=== PATIENT | female | born 1950 | race Caucasian/White ===

== ENCOUNTER 2021-06-11 13:44 | Outpatient (CLI) | payer MEDICARE, SELFPAY ==
[2021-06-11 15:13] LABS: Vitamin D,25 Hydroxy 36.5 ng/mL
[2021-06-11 15:28] LABS: ALB/GLOB Ratio 1.5 RATIO (0.9-2.4); AST(SGOT) 12 U/L (15-37); Alanine Aminotransfer ALT/SGPT 28 U/L (13-56); Albumin, Serum 4.3 g/dL (3.2-5.0); Alkaline Phosphatase 71 U/L (45-117); Anion Gap 5 (5-15); BUN 15 mg/dL (7-18); BUN/Creat Ratio 17.8 RATIO (10-20); Calcium,Total 10.3 mg/dL (8.5-10.1); Chloride 107 mmol/L (98-107); Creatinine, Serum 0.84 mg/dL (0.55-1.02); EST Glomerular Filtration Rate 71 mL/min (>60); Est Glom Filt Rate - Afr Amer 86 mL/min (>60); Globulin 2.9 g/dL (2.2-4.2); Glucose 117 mg/dL (74-106); Potassium 4.3 mmol/L (3.5-5.1); Protein, Total 7.2 g/dL (6.4-8.2); Sodium Level 139 mmol/L (136-145)
[2021-06-12 08:03] LABS: PTHIN 66.5 pg/mL (18.4-80.1)
== END 2021-06-11 23:59 | disposition home or self-care (01) ==
PROVIDERS: PCP Internal Medicine; Referring Provider Internal Medicine Endocrinology, Diabetes & Metabolism; Visit Provider Internal Medicine Endocrinology, Diabetes & Metabolism
DX: E11.65 Type 2 diabetes mellitus with hyperglycemia (principal); Z79.4 Long term (current) use of insulin; I10 Essential (primary) hypertension; E83.52 Hypercalcemia; E55.9 Vitamin D deficiency, unspecified
CPT/HCPCS: 36415; 80053; 82306; 83970

== ENCOUNTER → 2021-12-22 | Outpatient (CLI) | payer MEDICARE, SELFPAY ==
--- NOTE | 2021-12-22 12:11 | US_ITS ---
INDICATION: possible enlarged parathyroid EXAMINATION: Ultrasound US Head/Neck Soft Tissue TECHNIQUE: Sheridan scale and color doppler imaging was performed of the thyroid gland. COMPARISON: None. FINDINGS: RIGHT THYROID LOBE: 3.9 x 1.4 x 1.9 cm. 1. There is heterogeneous echogenicity with multiple small anechoic nodules. 2. There is a prominent 8 x 9 x 8 mm nodule within the midpole of the RIGHT thyroid lobe with internal septation and hypoechoic internal content. Septated colloid cyst is a consideration, and findings are consistent with a TR 2: Not suspicious lesion. No abnormal blood flow. 3. There is a hypoechoic lesion in the deep portion of the RIGHT thyroid lobe measuring 9 x 8 x 9 mm which may represent a prominent parathyroid. LEFT THYROID LOBE: 4.4 x 1.6 x 1.5 cm. 1. There is heterogeneous echogenicity with multiple small anechoic nodules. 2. There are 2 complex nodule/masses within the LEFT thyroid lobe. Smaller measures 1.2 x 1.0 x 1.1 cm, is lobulated in contour. 3. Solid and cystic elements are present. No abnormal blood flow or calcifications however findings consistent with TR 4 lesion. 4. Additional larger complex nodule/mass measures 1.5 x 1.6 x 1.6 cm. Also solid and cystic, focal areas of increased echogenicity are present, no abnormal blood flow, there is a lobulated contour, and findings are consistent with TR4 lesion. 5. And LEFT. Thyroid is not visualized. ISTHMUS: 2.2 mm.. No thyroid nodules are present. US/Head/Neck Soft Tissue IMPRESSION: 1. Bilateral thyroid nodules. There are are small hypoechoic nodules likely representing colloid cysts, and a small to intermediate size complex hypoechoic nodule on the RIGHT likely representing a septated colloid cyst and consistent with a TR2 benign lesion. 2. There is a 9 x 9 x 9 mm hypoechoic area along the deeper posterior surface the RIGHT thyroid lobe, which may represent a parathyroid. No abnormal blood flow. 3. There are 2 mixed solid and cystic nodules on the LEFT with hyperechoic and cystic elements. No abnormal blood flow, however findings are consistent with TR4 lesions. Recommendations: TR4: Moderately Suspicious: FNA if ? 1.5 cm; Follow if ? 1 cm at 1, 2, 3, and 5 y Electronically Signed: César Loja MD at 23:31 EDT ,
== END | disposition home or self-care (01) ==
PROVIDERS: PCP Internal Medicine; Referring Provider Internal Medicine Endocrinology, Diabetes & Metabolism; Visit Provider Internal Medicine Endocrinology, Diabetes & Metabolism
DX: E21.0 Primary hyperparathyroidism (principal)
CPT/HCPCS: 76536

== ENCOUNTER → 2021-12-31 | Outpatient (CLI) | payer MEDICARE, SELFPAY ==
[2021-12-31 10:29] LABS: Erythrocyte Sedimentation Rate 1 mm/hr (0-30)
[2021-12-31 10:31] LABS: Absolute Lymphocyte Count 2.04 X10^3/uL (0.83-4.51); Absolute Neutrophil Count 6.2 X10^3/uL (2.0-7.7); Basophil# 0.07 X10^3/uL; Basophil% 0.8 % (0-1); Eosinophil# 0.18 X10^3/uL; Hematocrit 44.6 % (37-47); Hemoglobin 14.5 g/dL (12.0-15.0); Lymphocyte # 2.04 X10^3/ul (0.83-4.51); Lymphocyte % 22.5 % (19-41); Mean Corp Hgb Conc 32.5 g/dL (32-36); Mean Corpuscular Hgb 28.1 pg (27.0-32.0); Mean Corpuscular Volume 86.4 fL (81-99); Monocyte% 5.5 % (0-10); NRBC Flagged by Analyzer 0 % (0-5); Neutrophil # 6.24 X10^3/uL (2.7-7.7); Neutrophil % 68.9 % (47-70); Platelet Count 227 K/mm3 (150-450); RBC Distribution Width CV 13.5 % (11.6-14.6); Red Blood Count 5.16 M/mm3 (4.2-5.4); White Blood Count 9.1 K/mm3 (4.4-11.0)
[2021-12-31 10:46] LABS: CRP < 2.90 mg/L (0.0-3.0)
== END | disposition home or self-care (01) ==
LOC: MTLAB 08:53
PROVIDERS: PCP Internal Medicine; Referring Provider Ophthalmology; Visit Provider Ophthalmology
DX: E11.65 Type 2 diabetes mellitus with hyperglycemia (principal)
CPT/HCPCS: 36415; 85025; 85652; 86140

== ENCOUNTER → 2022-01-06 | Outpatient (CLI) | payer MEDICARE, SELFPAY ==
--- NOTE | 2022-01-06 10:23 | NM_ITS ---
CLINICAL: 71-year-old female with history of clinical hyperparathyroidism 99m Tc SESTAMIBI DUAL PHASE PARATHYROID SCINTIGRAPHY COMPARISON: Head and neck soft tissue ultrasound report 12/22/2021 FINDINGS: Following the intravenous administration of 24.6 mCi of 99m Tc sestamibi, image acquisitions of the anterior neck at 20 minutes and 2.0 hours post radiopharmaceutical provision reveal: 1. Immediate static blood pool acquisitions demonstrate uniform distribution of the radiopharmaceutical in the right-left thyroid colloid. 2. Delayed images depict focal retained radiopharmaceutical concentration noted in the region of the right thyroid bed with otherwise normal washout of the radiotracer from the previously defined left thyroid parenchyma. NM/Parathyroid Scan IMPRESSION: 1. ABNORMAL 99m Tc SESTAMIBI PARATHYROID IMAGING DUAL PHASE EXAMINATION. 2. There is scintigraphic evidence of an apparent parathyroid adenoma involving the right thyroid bed as described above. Electronically Signed: César Lerma, at 21:36 EST ,
== END | disposition home or self-care (01) ==
LOC: NM 10:22
PROVIDERS: PCP Internal Medicine; Referring Provider Internal Medicine Endocrinology, Diabetes & Metabolism; Visit Provider Internal Medicine Endocrinology, Diabetes & Metabolism
DX: E21.0 Primary hyperparathyroidism (principal)
CPT/HCPCS: 78070; A9500

== ENCOUNTER → 2022-01-27 | Outpatient (CLI) | payer MEDICARE, SELFPAY ==
--- NOTE | 2022-01-27 08:20 | FLU_PTH ---
PATIENT: KIMBERLY BUNN LOC: [facility]#:[id number] AGE/SX: 71/F ROOM: RE01/27/[address]: Dr. Vladimir Rodriguez MD : 1950 BED: DIS: 01/27/2022 SPEC #: [id number] RECD: 01/27/22 12:21 STATUS: DEB RELes #: [id number] GI: 01/27/22 08:[address]: Vladimir Rodriguez DEPT: CYTOLOGY RECD BY: Stephany Perez ENTERED: 01/27/22 12:34 SP TYPE: Fluid OTHR DR: Dr. Starla Feldman, DO Tissues: A - Thyroid gland, NOS B - Thyroid gland, NOS Procedures: Special Stain Group II Surgery Specimen Level IV Cytospin Fluid Cytology Other HEADER OPERATION: Left thyroid nodule, fine needle aspiration PRE-OP DIAGNOSIS: Multiple thyroid nodules TISSUE SUBMITTED: A ? Left thyroid nodule fluid, B ? Left thyroid nodule x4 slides DIAGNOSIS CYTOLOGY A. Fine needle aspiration, left thyroid nodule (cytospin and cell block): Rare follicular cells with mild atypia present. B. Fine needle aspiration, left thyroid nodule (smears): Benign follicular nodule with cystic change ([place] Category II). See comment. AM:marcus 01/28/2022 COMMENT B. The majority of the follicular cells are obscured by blood. Clinical correlation is necessary. The [place] System for thyroid diagnostic categorization was used in the evaluation of this case. The specimen is adequate for evaluation. CYTOLOGY STUDY Slides are reviewed. CYTOLOGY GROSS A - Received is 35 ml of red cloudy fluid labeled with the patient's name and and designated per the requisition as left thyroid nodule. Submitted for cytology preparation including cell block. B - Received are four smears labeled with the patient's name and designated per the requisition as left thyroid nodule. Submitted for staining. / marcus 01/27/2022 TC:5 CPT: 44721 x2, 20792
[2022-01-27 10:43] LABS: Free T3 2.9 pg/mL (2.18-3.98); T4 Total, Thyroxin 9.7 ug/dL (4.8-13.9); Thyroid Stim Hormone (TSH) 2.36 uIU/mL (0.358-3.74)
== END | disposition home or self-care (01) ==
PROVIDERS: PCP Internal Medicine; Referring Provider Surgery; Visit Provider Surgery
DX: E04.2 Nontoxic multinodular goiter (principal)
CPT/HCPCS: 36415; 84436; 84443; 84481; 88108; 88161; 88305; 88313

== ENCOUNTER 2022-03-12 05:44 | Day surgery (SDC) | payer MEDICARE, SELFPAY ==
[2022-03-12] VITALS (9 sets, daily range): BP systolic 136–168; BP diastolic 85–106; PULSE 90–99; RESP 16–18; TEMP 36.8–37.3; O2SAT 93–99; BMI 31.8
--- NOTE | 2022-03-12 | PARA_PTH ---
PATIENT: KIMBER[place]UNN [place] [facility] [id number] AGE/SX: 72/F ROOM: RE03/12/[address]: Dr. Vladimir Rodriguez MD : 1950 BED: DIS: 03/12/2022 SPEC #: [id number] RECD: 03/12/22 09:22 STATUS: DEB GIGI #: [id number] GI: 03/12/22 00:[address]: Vladimir Rodriguez DEPT: SURGICAL PATHOLOGY RECD BY: Sadaf Ballard ENTERED: 03/12/22 09:40 SP TYPE: PARATHY OTHR DR: Dr. Flavia Ramon MD Tissues: A - Parathyroid B - Parathyroid C - Parathyroid Procedures: Frozen Section (charge) Surgery Specimen Level IV HEADER OPERATION: Parathyroidectomy x2, intraoperative nerve monitoring PRE-OP DIAGNOSIS: Thyroid nodule, primary hyperparathyroidism TISSUE SUBMITTED: A ? Right inferior parathyroid tissue, FS, B - Right inferior parathyroid tissue, FS, C - Right superior parathyroid tissue, FS FROZEN SECTION DIAGNOSIS A. Right inferior parathyroid tissue, biopsy: Thyroid tissue. B. Right inferior parathyroid, biopsy: Parathyroid tissue. C. Right superior parathyroid gland tissue, biopsy: Parathyroid tissue, 0.4 gm. SJ:marcus 03/12/2022 MICROSCOPIC DIAGNOSIS A. Right inferior parathyroid tissue, biopsy: Thyroid tissue. B. Right inferior parathyroid, biopsy: Parathyroid tissue. See comment. C. Right superior parathyroid gland tissue, biopsy: Hyperplastic parathyroid tissue (0.4 gm). TIA:marcus 03/15/2022 COMMENT B. The specimen weighs <0.1 gm. Correlation with clinical, laboratory and radiologic findings and appropriate follow up are necessary. MICROSCOPIC DESCRIPTION Slides are reviewed. GROSS DESCRIPTION A - Received fresh for frozen section diagnosis labeled with the patient's name is a specimen designated right inferior parathyroid tissue. The specimen consists of a pink-red nodule weighing 0.4 gm and measuring 1.5 x 0.7 x 0.5 cm. The specimen is bisected and submitted entirely for frozen section diagnosis in one cassette. / SJ: 03/12/2022 B - Received fresh for frozen section diagnosis labeled with the patient's name is a specimen designated right inferior parathyroid tissue. The specimen consists of a piece of miles-pink soft tissue weighing <0.1 gm and measuring 0.5 x 0.3 x 0.2 cm. The entire specimen is submitted for frozen section diagnosis in one cassette. / : 03/12/2022 C - Received fresh for frozen section diagnosis labeled with the patient's name is a specimen designated right superior parathyroid tissue. The specimen consists of a piece of miles-pink soft tissue weighing 0.4 gm and measuring 1.2 x 1 x 0.5 cm. The specimen is bisected and submitted for frozen section diagnosis in one cassette. / SJ: 03/12/2022 TC:5 CPT: 73574 x3, 16948 x3
--- NOTE | 2022-03-12 06:02 | EKG12_ITS ---
Test Reason : CP Blood Pressure : / mmHG Vent. Rate : 089 BPM Atrial Rate : 089 BPM P-R Int : 152 ms QRS Dur : 092 ms QT Int : 386 ms P-R-T Axes : -05 063 040 degrees QTc Int : 469 ms Normal sinus rhythm Normal ECG Confirmed by LI ASTUDILLO, WALDEMAR ([id number]), greeting card editor NATE YU ([id number]) on 03/17/2022 10:18:10 AM Referred By: Vladimir Rodriguez Confirmed By:WALDEMAR JEFFERSON MD
[2022-03-12 06:34] LABS: Hematocrit 42.8 % (37-47); Mean Corp Hgb Conc 32.7 g/dL (32-36); Mean Corpuscular Hgb 27.9 pg (27.0-32.0); Mean Corpuscular Volume 85.4 fL (81-99); Mean Platelet Vol. 10.3 fl (6.2-12.0); Platelet Count 200 K/mm3 (150-450); RBC Distribution Width CV 13.4 % (11.6-14.6); RBC Distribution Width SD 41.4 fl (35.1-43.9); Red Blood Count 5.01 M/mm3 (4.2-5.4); White Blood Count 9.4 K/mm3 (4.4-11.0)
[2022-03-12 06:48] LABS: Anion Gap 7 (5-15); BUN 16 mg/dL (7-18); BUN/Creat Ratio 17.7 RATIO (10-20); Chloride 108 mmol/L (98-107); EST Glomerular Filtration Rate 66 mL/min (>60); Est Glom Filt Rate - Afr Amer 79 mL/min (>60); Estimated Creatinine Clearance 50.23 ml/min; Glucose 189 mg/dL (74-106); Potassium 3.7 mmol/L (3.5-5.1); Sodium Level 141 mmol/L (136-145)
[2022-03-12] MEDS: Lactated Ringers 1,000 ML 15 ML IV (06:51)
[2022-03-12 06:55] LABS: PTHIN 75.8 pg/mL (18.4-80.1)
[2022-03-12] MEDS: Cefazolin 2 GM in 0.9% Normal Saline 100 ML IV (07:30)
--- NOTE | 2022-03-12 07:32 | PCM.HP.BLA ---
History and Physical Date of Admission: 03/12/22 Date of Service:? 02/02/22 MR#: [id number] Acct: [id number] Name:KIMBERLY CARLISLE Rep #: [id number] : 1950 ? ? Provider: Dr. Vladimir Rodriguez MD Age/Sex:? 71/F ? ? Location: [facility] [address] Status: Signed Intake Intake Visit Reasons:?UPDATE H&P DISCUSS SURGERY Chief Complaint: thyroid/parathyroid nodule Allergies No Known Allergies Allergy (Unverified 01/27/22 08:30) PFSH Medical History?(Updated 02/02/22 @ 16:[address] Vladimir Rodriguez MD) BREAST REDUCTION DOUBLE KNEE REPLACEMENT GASTROINTESTIONAL PROBLEMS GERD (gastroesophageal reflux disease) Hearing problem Heart disease Hypercalcemia HYSTERECTOMY Kidney stone Kidney stones Neuropathy Primary hyperparathyroidism REPAIR FROM HYSTERECTOMY Seasonal allergies Skin cancer T&A Thyroid nodule UTI (urinary tract infection) VISON PROBLEMS Surgical History?(Updated 01/27/22 @ 08:26 by Maye Tuesday) History of bilateral knee replacement Hx of abdominal surgery Hx of adenoidectomy Hx of breast reduction, elective Hx of tonsillectomy Family History?(Updated 01/27/22 @ 08:28 by Maye Tuesday) Father Cancer ?? ? leukemia Heart diseaseBrother Heart diseaseOther Arthritis Bowel disease Breast cancer CVA (cerebral vascular accident) Cervical cancer Liver disease Melanoma SKIN CANCER Social History?(Updated 01/27/22 @ 08:28 by Maye Tuesday) Smoking Status:? Never smoker alcohol intake:? never substance use type:? does not use HPI HPI HPI: Patient presents for follow-up visit related to her history of primary hyperparathyroidism and thyroid nodules.? She again reports with her daughter for today's visit.? She denies any issues following her ultrasound-guided fine-needle aspiration undertaken at her last visit on 01/27/2022.? She states that she is ready to have her whole thyroid removed and will go along with whatever you say. Below is recapitulated from patient's initial surgical consultation reason for review: Patient is a 71-year-old female who presents for surgical consultation with a diagnosis of normal hormonal hyperparathyroidism.? They are referred from Dr. Corado.? Patient states that she is not aware of a diagnosis of osteopenia or osteoporosis, but refers to a recent bone density scan earlier this year for further reference.? Patient has no history of pathologic fractures. ? Patient also has a history of kidney stones.? She states that these began in 2012 and occurred with a frequency of 1- 2/year thereafter with her last stone experienced sometime last winter.? She notes that her urologist, Dr. Nj, has performed a stone analysis and did confirm these are calcium stones.? Patient has no history of frequent dental caries or chipped teeth.? Patient has a history of brittle fingernails.? Patient also has a history of GERD.? She denies any use of regular medication, but states that for a while she required frequent Tums.? She notes that she sometimes requires a bag at her bedside to be able to vomit into when she awakens in the middle of the night with acid.? Since trying to avoid spicy foods and not eating past 5:00, however, this reflux frequency has decreased.? She also expresses some apprehension about beginning medications as she read online that they are not good for you.? Patient has no history of hypertension.? Additional symptoms include: Difficulty with concentration, brain fog, fatigue and some constipation. Patient has no history of prior radiation exposure.? Patient [has/has no] family history of other endocrinopathies [including: Diagnoses] Patient does not have a diet high in dairy and what dairy she does take is generally limited to cheese. Patient's current labs are calcium: 10.3 mg/dL (06/11/2021) [only singular value available], Vitamin D: 36.5 ng/mL (06/11/2021), Ionized calcium: [Value]mg/dL [date], PTH: 66.5 pg/mL (06/11/2021) [only singular value available], Phosphorus: [Value] [date] Current medications include: Vitamin D supplementation and calcium supplementation via multivitamin. Imaging as been done with both thyroid ultrasound and sestamibi?performed on 12/22/2021 and 01/06/2022, respectively.? Thyroid ultrasound showed a right thyroid lobe measuring 3.9 x 1.4 x 1.9 cm.? Within this lobe there was a subcentimeter nodule that was rated a TI-RADS 2 and a second hypoechoic lesion deep to the portion of the right thyroid lobe measuring 0.9 x 0.8 x 0.9 cm which may represent a prominent parathyroid.? The left thyroid lobe measured 4.4 x 1.6 x 1.5 cm.? Within this lobe radiology noted a 1.2 x 1.0 x 1.1 cm nodule rated as a TI-RADS 4 for mixed composition and presence of calcifications.? A second TI-RADS 4 lesion measuring 1.5 x 1.6 x 1.6 cm was also identified.? This was given its rating for mixed composition, hyperechoic echogenicity, and a lobulated contour. Patient's sestamibi showed scintigraphic evidence of an apparent parathyroid adenoma involving the right thyroid bed. Patient did have DEXA imaging 11/17/2021 which showed normal bone mineral density. Regarding patient's thyroid nodules which were found incidentally on the thyroid ultrasound for localization of parathyroid and her enumerated above: They do experience difficulty with swallowing.? They state this difficulty is to both solids and liquids and occasionally things become stuck.? Patient states that maybe this is worse.? They do complain of a new cough which is described as dry and associated with some shortness of breath.? Patient attributes this to general deconditioning as she was previously much more active.? They do appreciate new voice changes.? Patient's daughter, who accompanies her to today's visit, states that patient's voice tends to cut out with extended talking.? They do not have a history of snoring/sleep apnea. Additionally, their weight has been decreasing and they remark of a recent (over the past 3 months) 10 pound weight loss due to loss of appetite.? As above, there is history of recent fatigue which patient had attributed to COVID and long-hauler syndrome but no formal diagnosis has been made.? They do have a history of heat intolerance?particularly at night.? ? Other symptoms include: Some lifelong anxiety and dry skin?the latter which has been worse of late. Exam Const General: cooperative, comfortable and no acute distress Orientation: alert, awake and oriented x3 Neck Other: Patient has a yellowing of her anterior neck consistent with a resolving ecchymosis from recent biopsy.? The soft tissues remain soft and this is nontender to palpation. Resp Effort & Inspection: normal respiratory effort Assessment and Plan Assessment and Plan (1) Thyroid nodule: ?Status:?Acute ?Comment: This is a 71-year-old female, euthyroid from an endocrine standpoint, who presents with incidentally noted left-sided thyroid nodule rated a TI-RADS 4 by radiology.? Neck ultrasound have been obtained for localization of possible parathyroid adenoma given diagnosis of normal hormonal hyperparathyroidism.? After an extensive discussion with patient and her daughter regarding her ultrasound results, ultrasound-guided fine-needle aspiration was made of patient's left-sided thyroid nodule on 01/27/2022.? Cytopathology returned as consistent with a [place] 2, benign colloid nodule.? While atypia was noted with the cytospin results, conversation with pathology revealed this to be such a minor portion of the overall specimen, that they felt confident in the benign designation.? This information was shared with patient and her daughter.? Given this benign result, and localizing studies for patient's hyperparathyroidism, it is my hope to avoid dissection on patient's left neck and focus in the area designated by both ultrasound and recent nuclear medicine sestamibi that showed evidence of a probable parathyroid adenoma in the right neck.? Would recommend ongoing surveillance for this nodule as well as patient's remaining left TI-RADS 4 nodule that did not meet criteria for biopsy and subcentimeter right-sided thyroid nodule. ?Plan: ? Continue surveillance for patient's thyroid nodules given benign pathology from recent fine-needle aspiration (2) Primary hyperparathyroidism: ?Status:?Acute ?Comment: Patient with diagnosis of normal hormonal hyperparathyroidism.? I held another extensive discussion with Ms. Javed and her daughter regarding the pathophysiology of hyperparathyroidism and how it fits into surgical planning.? I carefully explained why I would recommend we proceed with a minimally invasive parathyroidectomy and thereby hopefully minimize the risk to patient for both postoperative hypoparathyroidism as well as injury to the recurrent laryngeal nerves.? This discussion was facilitated by and drawings and taking all questions as they arose.? I described the procedure to include intraoperative nerve and PTH monitoring and the significance of each.? Lastly I discussed the patient's indication for this procedure is her history of kidney stones and the end goal of minimizing her risk for further renal function deterioration.? I suggested there may be alternative benefits, but these were impossible to prognosticate on?to include hopeful improvements in her GI complaints and neuropsychiatric symptoms.? Lastly, I did describe to the patient and her daughter that I would plan for this to be a outpatient disposition and for regular postoperative follow-up in clinic.? Both patient and her daughter expressed understanding of this information and wished to proceed as recommended. ?Plan: ? Minimally invasive parathyroidectomy with intraoperative nerve and PTH monitoring to be scheduled at first mutually available date.? Outpatient disposition anticipated. (3) Kidney stone: ?Status:?Acute ?Comment: Likely secondary to patient's diagnosis of hyperparathyroidism?especially with her report that these were confirmed to be calcium stones. I have examined the patient and the H&P has been reviewed. There are no clinical changes since date of exam.
[2022-03-12 09:06] LABS: PTHIN 355.9 pg/mL (18.4-80.1)
[2022-03-12 09:50] LABS: PTHIN 154.8 pg/mL (18.4-80.1)
[2022-03-12 10:10] LABS: Bedside Glucose 192 mg/dL (74-106)
[2022-03-12 10:15] LABS: PTHIN 88.9 pg/mL (18.4-80.1)
[2022-03-12 10:17] LABS: PTHIN 60.5 pg/mL (18.4-80.1)
[2022-03-12 10:40] LABS: PTHIN 49.5 pg/mL (18.4-80.1)
[2022-03-12 10:46] LABS: PTHIN 19.8 pg/mL (18.4-80.1)
--- NOTE | 2022-03-12 11:02 | DCINST_ITS ---
Discharge Instructions Diet Discharge Diet: No restrictions Activity Discharge Activity: May Not Drive (While it is difficult to turn head and check blind spots) May shower in (days): 2 Ice area for (Minutes): 20 Lifting Restrictions: No lifting greater than 15 pounds for 2 weeks after surgery Dressing / Incision Call your doctor if your incision/area has: Continuous Slow Oozing, Sudden Increased Bleeding, Increased Pain/ Swelling, Increased Redness and Swelling at the incision site Call your doctor if you observe: Numbness or Tingling Remove Dressing in: 2 days (Please leave Steri-Strips intact until they fall off spontaneously or are taken off at your follow-up visit) Cleanse incision/area with: Soap & Water Follow Up Care Please Follow Up With: Vladimir Rodriguez MD When: 7 days postop Test Results: Test results from this visit will be discussed in further detail at your follow- up appointment, if applicable. Discharge Plan Admission Primary Reason for Your Visit: Hyperparathyroidism Attending Provider: Vladimir Rodriguez Primary Care Provider: Flavia Ramon Instructions Patient Instructions: Hyperparathyroidism Primary, Having Parathyroid Surgery Discharge Orders/Prescriptions Prescriptions: New calcium carbonate-vitamin D3 [Calcium 500 With D] 500 mg-10 mcg (400 unit) tablet 1 tab PO TID Qty: 60 1RF No Action (DME) blood sugar diagnostic Strip See Rx Instructions .ROUTE .MEDSUPPLY Qty: 10 Label Comments: Use as directed to check blood sugar 2 times daily Rx Instructions: As directed (DME) pen needle, diabetic 32 gauge x 5/32 needle See Rx Instructions .ROUTE .MEDSUPPLY Qty: 50 Rx Instructions: As directed lisinopril 10 mg tablet 10 mg PO QHS simvastatin 40 mg tablet 40 mg PO QHS cholecalciferol (vitamin D3) 25 mcg (1,000 unit) capsule 25 mcg PO DAILY multivitamin [Daily Multi-Vitamin] Tablet 1 tab PO DAILY Stool Softener 50 mg capsule 50 mg PO PRN PRN (Reason: Constipation) insulin glargine 100 unit/mL (3 mL) insulin pen 56 unit SC QHS metformin 1,000 mg tablet 1,000 mg PO BID glimepiride 2 mg tablet 2 mg PO DAILY Trulicity 3 mg/0.5 mL pen injector 3 mg subcut FR vitamin B complex Capsule 1 cap PO DAILY Referrals / Follow Up: Flavia Ramon MD [Primary Care Provider] - Disposition Disposition (needs filled in before D/C Order can be placed): Home, Self Care
--- NOTE | 2022-03-12 11:10 | PCM.OPRPT ---
Report of Operation Date of Procedure: 03/12/22 Pre-Operative Diagnosis: Primary hyperparathyroidism Post-Operative Diagnosis: Same Surgery/Procedure Performed:: Parathyroidectomy x2 (superior and right inferior) Surgeon: Vladimir Rodriguez building insulation installer: Arabella Monroy Type of Anesthesia: General/Supplemental Anesthesiologist: Hasmukh Bae Specimen's removed: 1. Right inferior parathyroid (frozen section thyroid nodule) 2. True right inferior parathyroid (frozen section confirmed) 3. Right superior parathyroid?adenomatous appearance (frozen section confirmed at 400 mg) Description of Procedure: After appropriate identification the preoperative holding area the patient was brought to the operating room where she was positioned supine on the operating room table. There she was induced with general endotracheal anesthetic. Of note, a preoperative PTH had been obtained and was reported as 75.8. Patient was then intubated using a Nims tube and glidescope to ensure coaptation between the vocal cords and the Nims tube electrodes. Patient was then positioned on a shoulder roll to facilitate neck extension, but still maintain adequate support of the head. A resistance check confirmed appropriate function of the tube after the electrodes were properly connected to the monitoring box. She was prepped and draped in the usual sterile fashion and a formal timeout followed to confirm patient and the procedure to be performed. A local block was produced with infiltration of local anesthetic and an incision was made 4 cm in transverse orientation. This was deepened with the use of electrocautery through the platysma and subplatysmal flaps were raised. The strap muscles were exposed and these were divided along their raphe with electrocautery. There were several crossing veins that were divided with the use of LigaSure. I the sternothyroid and sternohyoid muscles until their lateralmost extent so that I could expose the right internal jugular vein. With this exposure complete I obtained a baseline value of 355.9. I then returned to the thyroid where I began local exploration and mobilization. There appeared to be a possible right inferior pole adenoma just inferior to the right inferior pole of the right thyroid lobe. Therefore, I carefully attempted to separate this presumed adenoma from the thyroid gland. I found this work exceptionally tedious and that the tissue didn't as easily as I would have expected so this became concerning for a possible protruding thyroid nodule. Given that the specimen was largely devascularized at this point I elected submit it for frozen section. After this submission was made I obtained PTH level from serial internal jugular sampling. Pathology called o notify that the specimen they received was indeed thyroid in origin and our PTH level came back at 154.8. Shortly after confirming these results, I identified a normal-appearing parathyroid and submitted it for frozen section. PTH levels were serially drawn from the right internal jugular vein and returned 88.9 and 60.5. As these values were reported, we also heard back from pathology that our submitted specimen was indeed parathyroid tissue. Since these PTH levels did no satisfy [place] criteria, I returned the the neck and continued medial mobilization of the right thyroid lobe- including division of the right thyroid lobe middle vein. Shortly after this additional mobilization, i was able to visualize what I believed to represent the right recurrent laryngeal nerve, and indeed obtained nice signal from this nerve when stimulated using our NIMS device. From patient's positive ultrasound imaging I had been suspicious for a adenomatous right superior gland so we searched this area carefully and found some additional superior pole nodule posteriorly. Just superior to the location of our previously identified parathyroid we identified a much larger hyperplastic-appearing gland within the paratracheal soft tissue. This was carefully delivered into the surgical cavity and the polar vessels were secured with a clip and amputated. After the specimen was submitted for pathology 10 and 15minute ex vivo PTH values were obtained from the right internal jugual vein. Pathology telephoned to confirm that our specimen was parathyroid and weighed in excess of 400mg. PTH values subsequently returned at 49.5 and 19.8, respectively. Satisfied with this result, the case was terminated and I verified hemostasis was present in the surgical cavity after irrigating. Once this was intact, I performed closure of the neck in layers. The strap muscles were run with a 3-0 Vicryl suture to approximate the raphe but a gap was left in the inferior most portion of the strap muscles. Then the platysmal layer was reapproximated with interrupted 3-0 Vicryl. Additional local anesthetic was instilled. Then the skin was closed using a running 4-0 Monocryl in a subcuticular fashion. Steri-Strips and Telfa OpSite was applied as a dressing. Patient was then awoken from general anesthetic and taken to PACU for ongoing recovery. Complications None Admit VTE Documentation VTE Mechan Device Prophylaxis: SCD's Procedures Endocrine CF Procedures [id number]: Other Procedure See Report ([id number])
[2022-03-12 11:50] LABS: Bedside Glucose 221 mg/dL (74-106)
[2022-03-12 12:07] LABS: PTHIN 39.3 pg/mL (18.4-80.1)
[2022-03-12 13:25] LABS: Bedside Glucose 170 mg/dL (74-106)
== END 2022-03-12 14:36 | disposition home or self-care (01) ==
LOC: SDC 05:45 → AC 05:46
PROVIDERS: Anesthesiology; PCP Internal Medicine; Referring Provider Surgery; Visit Provider Surgery
PROC: (CPT 60500; principal; 2022-03-12 07:15)
DX: E21.0 Primary hyperparathyroidism (principal); E11.40 Type 2 diabetes mellitus with diabetic neuropathy, unspecified; Z79.4 Long term (current) use of insulin; E04.1 Nontoxic single thyroid nodule; E78.2 Mixed hyperlipidemia; E66.9 Obesity, unspecified; I10 Essential (primary) hypertension; Z68.31 Body mass index [BMI] 31.0-31.9, adult; Z90.89 Acquired absence of other organs; Z79.84 Long term (current) use of oral hypoglycemic drugs; Z79.899 Other long term (current) drug therapy
CPT/HCPCS: 60500; 00320; 80048; 82962; 83970; 85027; 88305; 88331; 93005; J7120; J2405

== ENCOUNTER → 2022-03-19 | Outpatient (CLI) | payer MEDICARE, SELFPAY ==
[2022-03-19 16:48] LABS: Calcium,Total 9.2 mg/dL (8.5-10.1)
[2022-03-22 09:06] LABS: PTHIN 53.7 pg/mL (18.4-80.1)
== END | disposition home or self-care (01) ==
LOC: LAB 15:22
PROVIDERS: PCP Internal Medicine; Visit Provider Surgery
DX: E21.0 Primary hyperparathyroidism (principal)
CPT/HCPCS: 36415; 82310; 83970